=== PATIENT | female | born 1945 | race Caucasian/White ===

== ENCOUNTER 2022-04-22 13:39 | Emergency (ER) | payer MEDICARE, MEDICAID ==
[2022-04-22 14:17] LABS: BASOPHILS % (AUTO) 0.6 %; EOSINOPHILS # (AUTO) 0.1 10^3/uL (0.0-0.7); EOSINOPHILS % (AUTO) 1.3 %; HCT - HEMATOCRIT 37.6 % (37.0-47.0); HGB - HEMOGLOBIN 12.3 g/dL (12.0-16.0); LYMPHOCYTES # (AUTO) 1.3 10^3/uL (1.5-3.5); LYMPHOCYTES % (AUTO) 19.6 %; MEAN CORPUSCULAR HEMOGLOBIN 30.6 pg (27.0-31.0); MEAN CORPUSCULAR HGB CONC 32.7 g/dL (32.0-36.0); MEAN CORPUSCULAR VOLUME 93.5 fL (81.0-99.0); MEAN PLATELET VOLUME 9.4 fL (7.9-10.8); MONOCYTES # (AUTO) 0.7 10^3/uL (0.0-1.0); MONOCYTES % (AUTO) 10.2 %; NEUTROPHILS # (AUTO) 4.6 10^3/uL (1.5-6.6); NEUTROPHILS % (AUTO) 68.2 %; PLT - PLATELET COUNT 292 10^3/uL (130-450); RED BLOOD COUNT 4.02 10^6/uL (4.20-5.40); RED CELL DISTRIBUTION WIDTH 12.5 % (12.0-15.0); WHITE BLOOD COUNT 6.8 x10^3/uL (4.8-10.8)
[2022-04-22 14:24] LABS: BILIRUBIN,URINE NEGATIVE (NEGATIVE); CLARITY,URINE CLEAR (CLEAR); GLUCOSE, URINE (UA) NEGATIVE (NEGATIVE); KETONES,URINE (UA) NEGATIVE (NEGATIVE); LEUKOCYTE ESTERASE, URINE TRACE (NEGATIVE); NITRITE,URINE NEGATIVE (NEGATIVE); OCCULT BLOOD,URINE MODERATE (NEGATIVE); PH,URINE 6.5 PH (5.0-7.5); PROTEIN,URINE NEGATIVE (NEGATIVE); UROBILINOGEN,URINE 0.2 (NORMAL) E.U./dL (NORMAL)
[2022-04-22 14:34] LABS: WBC CLUMPS,URINE PRESENT
[2022-04-22 14:35] LABS: BACTERIA,URINE Few /HPF (None Seen); SQUAMOUS EPITHELIAL CELL,UR NONE SEEN (<= Few)
[2022-04-22 14:44] LABS: ALBUMIN 3.7 g/dL (3.2-5.5); ALBUMIN/GLOBULIN RATIO 1.1 (1.0-2.2); BILIRUBIN,TOTAL 0.3 mg/dL (0.2-1.0); CALCIUM 9.2 mg/dL (8.5-10.3); CREATININE 0.5 mg/dL (0.4-1.0); POTASSIUM 4.1 mmol/L (3.5-5.0)
--- NOTE | 2022-04-22 16:44 | ED Physician Documentation ---
History of Present Illness - Stated complaint Stated Complaint: LOSS OF MEMORY - Chief complaint Chief Complaint: Neuro - Additonal information Additional information: 77-year-old female is brought to the emergency department by her son for evaluation of worsening confusion and altered mentation. Her son recently moved in [place] from [place] 3 to 6 weeks ago. She is living independently but her son reports that he has to be with her every day to ensure she takes medications appropriately. She routinely will forget where she is at as well as recent meals. She is had no focal deficits. Patient has a history of hypertension but no previous history of coronary artery disease or strokes. She was a moderate alcohol user though she has stopped drinking over the last few months. Patient was seen with primary care provider at [facility] and has been referred for neurocognitive testing which is still pending. The son reports that he has a history of cauda so which is a stroke disorder that is received from a parent. He is unsure whether he got it from his mom or dad. Review of Systems Constitutional: denies: Fever, Chills Eyes: reports: Reviewed and negative Nose: reports: Reviewed and negative Throat: reports: Reviewed and negative Cardiac: reports: Reviewed and negative GI: reports: Reviewed and negative : reports: Reviewed and negative Skin: reports: Reviewed and negative Neurologic: reports: Confused. 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 : None HEENT: None Psych: Depression Musculoskeletal: None Derm: None - Past Surgical History Past Surgical History: No - Present Medications Home Medications: Ambulatory Orders Medication Instructions Recorded Confirmed Atorvastatin [Lipitor] 10 mg PO DAILY 04/22/22 04/22/22 Citalopram [CeleXA] 10 mg PO DAILY 04/22/22 04/22/22 Losartan/Hydrochlorothiazide mg PO DAILY 04/22/22 [Losartan-Hctz 100-12.5 mg Tab] - Allergies Allergies/Adverse Reactions: Allergies Allergy/AdvReac Type Severity Reaction Status Date / Time atorvastatin Allergy Unknown Verified 04/22/22 13:53 codeine Allergy Unknown Verified 04/22/22 13:54 fluconazole Allergy Unknown Verified 04/22/22 13:54 Penicillins Allergy Unknown Verified 04/22/22 13:54 sulfamethoxazole Allergy Unknown Verified 04/22/22 13:54 [From Bactrim] trimethoprim [From Bactrim] Allergy Unknown Verified 04/22/22 13:54 - Social History Does the pt smoke?: No Smoking Status: Never smoker Does the pt drink ETOH?: No Does the pt have substance abuse?: No - POLST Patient has POLST: No PD ED PE NORMAL - General General: Alert and oriented X 3, No acute distress, Well developed/nourished - HEENT HEENT: Atraumatic, Moist mucous membranes - Neck Neck: Supple, no meningeal sign, No adenopathy - Cardiac Cardiac: RRR, No murmur - Respiratory Respiratory: No respiratory distress, Clear bilaterally - Abdomen Abdomen: Normal bowel sounds, Soft - Extremities Extremities: No deformity, No tenderness to palpate, Normal ROM s pain - Neuro Neuro: Alert and oriented X 3, story writer 2-12 intact Eye Opening: Spontaneous Motor: Obeys Commands Verbal: Oriented GCS Score: 15 Results - Vitals Vitals: Vital Signs - 24 hr 04/22/22 04/22/22 04/22/22 13:47 15:52 17:00 Temperature 35.9 C L Heart Rate 69 85 69 Respiratory 16 18 18 Rate Blood Pressure 146/81 H 143/83 H 139/92 H O2 Saturation 100 97 98 Oxygen O2 Source Room air - Labs Labs: Laboratory Tests 04/22/22 04/22/22 04/22/22 14:05 14:11 14:11 WBC 6.8 RBC 4.02 L Hgb 12.3 Hct 37.6 MCV 93.5 MCH 30.6 MCHC 32.7 RDW 12.5 Plt Count 292 MPV 9.4 Neut # (Auto) 4.6 Lymph # (Auto) 1.3 L [place] # (Auto) 0.7 Eos # (Auto) 0.1 Baso # (Auto) 0.0 Absolute Nucleated RBC 0.00 Nucleated RBC % 0.0 Sodium 129 L Potassium 4.1 Chloride 91 L Carbon Dioxide 30 Anion Gap 8.0 BUN 20 Creatinine 0.5 Estimated GFR (MDRD) 120 Glucose 114 H Calcium 9.2 Total Bilirubin 0.3 AST 20 ALT 19 Alkaline Phosphatase 48 Total Protein 7.0 Albumin 3.7 Globulin 3.3 Albumin/Globulin Ratio 1.1 Lipase 58 H Urine Color YELLOW Urine Clarity CLEAR Urine pH 6.5 Ur Specific [place] 1.010 Urine Protein NEGATIVE Urine Glucose (UA) NEGATIVE Urine Ketones NEGATIVE Urine Occult Blood MODERATE H Urine Nitrite NEGATIVE Urine Bilirubin NEGATIVE Urine Urobilinogen 0.2 (NORMAL) Ur Leukocyte Esterase TRACE H Urine RBC 11-25 H Urine WBC 6-10 H Urine WBC Clumps PRESENT Ur Squamous Epith Cells NONE SEEN Urine Bacteria Few Ur Microscopic Review INDICATED Urine Culture Comments INDICATED PD MEDICAL DECISION MAKING - ED course Complexity details: reviewed results, re-evaluated patient, considered differential, d/w patient, d/w family ED course: 77-year-old female was brought to emergency department by her son for evaluation of cognitive decline that has gotten worse over the last few weeks since he moved her from [place] to [place]. Specifically over the last 2 to 3 days he has found that his mom has had significant memory changes. She does have a remote history of alcoholism though no alcohol use now for at least a few weeks. No fevers nausea or vomiting. No chest pain. She is had no focal neurodeficits. Here in the emergency department she presents with an NIHSS of 0. She is able to appropriately describe to me a pen described my stethoscope and believes that it is April 2021 but then corrects quickly to April 2022. I did obtain a CBC that showed no worsening anemia or leukocytosis. I also evaluated her electrolytes. There is a mild hyponatremia of 129. No previous for comparison. I was able to review recent UA results in February through [facility] portal on the son's phone. Her urinalysis today is similar to that of February likely indicating chronic pyuria though given lack of fever or dysuria urgency or frequency I doubt acute cystitis will defer antibiotics today. Electrolytes were not available for my evaluation and comparison. I did obtain a CT of her head that showed no acute focal neurogenic findings. I discussed this at the bedside with her son. He is a good advocate for the patient. Patient is scheduled for neurocognitive testing as well as neurology referral upcoming. We discussed that given the UA will defer unless culture is pertinently positive. I did recommend following up with PCP next week to have her sodium rechecked otherwise emergent return precautions were discussed for worsening symptoms. Departure - Departure Disposition: Home, Self Care Clinical Impression: Memory changes, Hyponatremia, Pyuria Condition: Stable Record reviewed to determine appropriate education?: Yes Follow-Up: LEILA SORTO DO [Physician No Access] - Comments: Bia was seen today in the emergency department because she has begun to have a decline in her mentation as well as memory status changes. Here in the emergency department her urinalysis suggest that she has a urinary tract infection however she does not have any symptoms to suggest infection such as urinary frequency, pain or urgency. Therefore her pyuria may be a chronic finding which is found often especially in those were older and female. I would like to defer starting any antibiotics unless her urine culture is grossly suggestive of acute infection. We did obtain a CBC today that showed no worrisome findings. Her electrolytes showed a very mild decrease in her sodium of 129. I do not have a previous for comparison. I recommend some extra salt to her food over the next few days but I would like Dr. Sorto to follow-up her hyponatremia with a repeat electrolyte evaluation early next week. We did do a CT of her head today which did not find any thing to suggest stroke. She does have global cerebral volume loss and chronic microvascular ischemic changes which are common in those who are older but nothing to suggest acute or remote CVA. An MRI would be the gold standard test to evaluate for remote strokes and Dr. Sorto can order this as an outpatient.
--- NOTE | 2022-04-22 17:22 | CT Report ---
PROCEDURE: HEAD WO INDICATIONS: memory changes TECHNIQUE: Noncontrast 4.5 mm thick angled axial sections acquired from the foramen magnum to the vertex. For r adiation dose reduction, the following was used: automated exposure control, adjustment of mA and/or kV according to patient size. COMPARISON: None. FINDINGS: Image quality: Excellent. CSF spaces: Basal cisterns are patent. No extra-axial fluid collections. Ventricles are normal in size and shape. Brain: Moderate chronic microvascular ischemic changes and mild global cerebral volume loss. No midli ne shift. No intracranial masses or hemorrhage. Banerjee-white matter interface is normal. Skull and face: Calvarium and visualized facial bones are intact, without suspicious lesions. Sinuses: Visualized sinuses and mastoids are clear. IMPRESSION: No acute intracranial finding. Mild global cerebral volume loss and moderate chronic microvascular is chemic changes. Reviewed by: Jose F Chance MD on 04/22/2022 4:20 PM [facility] Approved by: Jose F Chance MD on 04/22/2022 4:20 PM [facility] Station ID: [id number]
[2022-04-22 18:14] VITALS: BP 138/83
== END 2022-04-22 18:13 | disposition home or self-care (01) ==
LOC: ED 13:39
DX: R41.3 Other amnesia (principal); E87.1 Hypo-osmolality and hyponatremia; R82.81 Pyuria
CPT/HCPCS: 36415; 80053; 81001; 81003; 83690; 85025; 87086; 99283; 99284

== ENCOUNTER 2022-08-17 16:07 | Outpatient (CLI) | payer MEDICARE, MEDICAID | END 2022-08-17 16:08 | disposition EMS.NT | LOC: EMS 16:07 | DX: F41.9 Anxiety disorder, unspecified (principal) ==

== ENCOUNTER 2022-08-17 19:12 | Outpatient (CLI) | payer MEDICARE, MEDICAID | END 2022-08-17 23:59 | disposition critical access hospital (66) | LOC: EMS 19:12 | DX: R10.9 Unspecified abdominal pain (principal); R11.2 Nausea with vomiting, unspecified; R42 Dizziness and giddiness | CPT/HCPCS: A0425; A0427 ==

== ENCOUNTER 2022-08-17 19:29 | Emergency (ER) | payer MEDICARE, MEDICAID ==
--- OUTSIDE RECORDS SUMMARY | 2022-08-17 19:43 | EXTERNAL MEDICAL SUMMARY RPT | Continuity of Care Document ---
:1945 Author Organization [facility] Address [address] [place] [address] Phone Allergies No information. Encounters No information. Functional Status No information. Immunizations No information. Medications No information. Problems date description facility 2022-06-01 16:17 Other symptoms and signs involving [facility] functions and a 2022-06-01 16:17 Encounter for general adult medical exa [facility] without abno 2022-06-01 16:17 Other reduced mobility [facility] 2022-06-17 11:36 Unspecified osteoarthritis, unspecified site [facility] 2022-06-17 11:36 Pain in right knee [facility] 2022-06-17 11:36 Pain in left knee [facility] 2022-06-17 11:42 Unspecified osteoarthritis, unspecified site [facility] 2022-06-17 11:42 Pain in right knee [facility] 2022-06-17 11:42 Pain in left knee [facility] 2022-06-22 07:44 Unspecified dementia, unspecified sever ity, [facility] without behavior 2022-06-22 09:07 Unspecified dementia, unspecified sever y, [facility] without behavior Procedures No information. Results/Labs test date author facility value unit interpret ation Result panel 1 (unknown) (no (unknown) (unknown) (no value) (units (unk nown) date) unknown) (unknown) (no (unknown) (unknown) 06/17/22 (units (unkno wn) date) unknown) (unknown) (no (unknown) (unknown) [address] [place] [address] (units (unknown) date) unknown) (unknown) (no (unknown) (unknown) : [id number] (units (u nknown) date) unknown) (unknown) (no (unknown) (unknown) Accession Number: (units (unknown) date) [id number] unknown) (unknown) (no (unknown) (unknown) Accession Number: (units (unknown) date) [id number] unknown) (unknown) (no (unknown) (unknown) Age/Sex: 77 / F (units (unknown) date) Date of Service: unknown) (unknown) (no (unknown) (unknown) [place] (units ( unknown) date) [id number] unknown) (unknown) (no (unknown) (unknown) Approved by: (units (u nknown) date) Candido [facility] M.D. unknown) on 06/17/2022 at 13:51 (unknown) (no (unknown) (unknown) Approved by: (units (u nknown) date) Candido [facility] M.D. unknown) on 06/17/2022 at 13:53 (unknown) (no (unknown) (unknown) Bones: No acute (units (unknown) date) fractures or unknown) dislocations. No suspicious bony lesions. (unknown) (no (unknown) (unknown) COMPARISON: [facility] (units (unknown) date) [facility], CR, XR unknown) KNEE LT 3V, 06/17/2022, 11:40. (unknown) (no (unknown) (unknown) COMPARISON: [facility] (units (unknown) date) [facility], CR, XR unknown) KNEE RT 3V, 06/17/2022, 11:40. (unknown) (no (unknown) (unknown) : 1945 (units (unknown) date) Acct:[id number] unknown) (unknown) (no (unknown) (unknown) Dictated by: (units (u nknown) date) Candido [facility] M.D. unknown) on 06/17/2022 at 13:49 (unknown) (no (unknown) (unknown) Dictated by: (units (u nknown) date) Candido [facility] M.D. 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 unknown) (unknown) (no (unknown) (unknown) PROCEDURE: XR KNEE (units (unknown) date) LT 3V unknown) (unknown) (no (unknown) (unknown) PROCEDURE: XR KNEE (units (unknown) date) RT 3V unknown) (unknown) (no (unknown) (unknown) Patient: (units (unkno wn) date) Bia Douglas unknown) MR# (unknown) (no (unknown) (unknown) Procedure: XR knee (units (unknown) date) LT 3V unknown) (unknown) (no (unknown) (unknown) Procedure: XR knee (units (unknown) date) RT 3V unknown) (unknown) (no (unknown) (unknown) Signed (units (unkno wn) date) unknown) (unknown) (no (unknown) (unknown) Soft tissues: No (units (unknown) date) joint effusion. No unknown) suspicious soft tissue calcifications. (unknown) (no (unknown) (unknown) TECHNIQUE: 3 views (units (unknown) date) of the knee were unknown) acquired. (unknown) (no (unknown) (unknown) Tricompartmental (units (unknown) date) degenerative unknown) changes present. Joint space loss at the medial (unknown) (no (unknown) (unknown) Tricompartmental (units (unknown) date) joint space loss, unknown) severe at the medial compartment, moderate (unknown) (no (unknown) (unknown) XRay Report (units (un known) date) unknown) (unknown) (no (unknown) (unknown) also (units (unkno wn) date) unknown) (unknown) (no (unknown) (unknown) at the (units (unkno wn) date) unknown) (unknown) (no (unknown) (unknown) compartment is (units (unknown) date) severe with unknown) articular surface deformity and spurring. Mild (unknown) (no (unknown) (unknown) compartment (units (un known) date) narrowing, moderate unknown) patellofemoral compartment narrowing, spurring (unknown) (no (unknown) (unknown) compartment. (units (u nknown) date) unknown) (unknown) (no (unknown) (unknown) deformity also (units (unknown) date) unknown) (unknown) (no (unknown) (unknown) lateral and (units (un known) date) patellofemoral unknown) compartments. Spurring and articular surface (unknown) (no (unknown) (unknown) lateral (units (unkno wn) date) unknown) (unknown) (no (unknown) (unknown) medial (units (unkno wn) date) unknown) (unknown) (no (unknown) (unknown) present at the (units (unknown) date) medial compartment. unknown) (unknown) (no (unknown) (unknown) present in both (units (unknown) date) compartments. unknown) Result panel 2 (unknown) (no date) (unknown) (unknown) 179 nmol/l (unkn own) (unknown) (no date) (unknown) (unknown) 179 nmol/l [id number] -2 Result panel 3 (unknown) (no date) (unknown) (unknown) 0.38 uiu/ml (unkn own) Result panel 4 (unknown) (no date) (unknown) (unknown) 558 pg/ml (unkn own) Result panel 5 (unknown) (no date) (unknown) (unknown) 0.38 uiu/ml (unkn own) (unknown) (no date) (unknown) (unknown) 1.04 ng/dl (unkn own) Result panel 6 (unknown) (no date) (unknown) (unknown) 179 nmol/l (unkn own) (unknown) (no date) (unknown) (unknown) 179 nmol/l (unkn own) Social History No information. Vital Signs No information.
[2022-08-17 20:20] LABS: BASOPHILS % (AUTO) 0.3 %; EOSINOPHILS % (AUTO) 0.2 %; HCT - HEMATOCRIT 37.4 % (37.0-47.0); LYMPHOCYTES # (AUTO) 0.5 10^3/uL (1.5-3.5); LYMPHOCYTES % (AUTO) 7.5 %; MEAN CORPUSCULAR HEMOGLOBIN 30.7 pg (27.0-31.0); MEAN CORPUSCULAR HGB CONC 34.8 g/dL (32.0-36.0); MEAN CORPUSCULAR VOLUME 88.4 fL (81.0-99.0); MEAN PLATELET VOLUME 9.2 fL (7.9-10.8); MONOCYTES # (AUTO) 0.4 10^3/uL (0.0-1.0); MONOCYTES % (AUTO) 6.4 %; NEUTROPHILS # (AUTO) 5.3 10^3/uL (1.5-6.6); NEUTROPHILS % (AUTO) 85.3 %; PLT - PLATELET COUNT 290 10^3/uL (130-450); RED BLOOD COUNT 4.23 10^6/uL (4.20-5.40); RED CELL DISTRIBUTION WIDTH 12.7 % (12.0-15.0); WHITE BLOOD COUNT 6.2 x10^3/uL (4.8-10.8)
[2022-08-17 20:32] LABS: ALBUMIN 3.8 g/dL (3.2-5.5); ALBUMIN/GLOBULIN RATIO 1.2 (1.0-2.2); BILIRUBIN,TOTAL 0.6 mg/dL (0.2-1.0); CALCIUM 8.7 mg/dL (8.5-10.3); CREATININE 0.6 mg/dL (0.4-1.0); POTASSIUM 2.9 mmol/L (3.5-5.0); TOTAL PROTEIN 6.9 g/dL (6.7-8.2)
--- NOTE | 2022-08-17 21:15 | ED Physician Documentation ---
PD HPI NVD - Stated complaint Stated Complaint: N/V - Chief complaint Chief Complaint: Abd Pain - History obtained from History obtained from: Patient, Family (Patient's son, who is in the ED at patient's bedside. He contributes some of HPI due to patient's dementia.) - Additonal information Additional information: Brought in by ambulance. HPI is from patient as well as her son who is in the ED at bedside. Patient has dementia, although she is able to contribute a significant amount of information to the HPI and her answers seem rapid and appropriate. Patient does not recall the events earlier today that led to the ED visit. Patient's son, who is in [place], says he received a call around noon regarding his mother (patient) having abdominal pain, nausea, and vomiting. He says that when he first saw her tonight, shortly after she arrived emergency department, she was quite diaphoretic. By the time of my exam, she is no longer diaphoretic and is in NAD Patient says she is not currently nauseous and she denies abdominal pain. Review of Systems Constitutional: reports: Other (no report of fever) GI: reports: Abdominal Pain (resolved by the time of this H+P), Nausea (resolved), Vomiting (resolved). 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 : None HEENT: None Psych: Depression Musculoskeletal: None Derm: None - Past Surgical History Past Surgical History: No - Present Medications Home Medications: Ambulatory Orders Medication Instructions Recorded Confirmed Atorvastatin [Lipitor] 10 mg PO DAILY 04/22/22 04/22/22 Citalopram [CeleXA] 10 mg PO DAILY 04/22/22 04/22/22 Losartan/Hydrochlorothiazide mg PO DAILY 04/22/22 [Losartan-Hctz 100-12.5 mg Tab] HYDROcod/ACETAM 5/325 [[place] 5/325] 1 tablet PO Q6H PRN #10 tablet 08/18/22 Ondansetron Odt [Zofran Odt] 4 mg TL Q6H PRN #10 tablet 08/18/22 Tamsulosin [Flomax] 0.4 mg PO DAILY #9 cap 08/18/22 - Allergies Allergies/Adverse Reactions: Allergies Allergy/AdvReac Type Severity Reaction Status Date / Time atorvastatin Allergy Unknown Verified 08/17/22 19:40 codeine Allergy Unknown Verified 08/17/22 19:40 fluconazole Allergy Unknown Verified 08/17/22 19:40 Penicillins Allergy Unknown Verified 08/17/22 19:40 sulfamethoxazole Allergy Unknown Verified 08/17/22 19:40 [From Bactrim] trimethoprim [From Bactrim] Allergy Unknown Verified 08/17/22 19:40 - Social History Does the pt smoke?: No Smoking Status: Never smoker Does the pt drink ETOH?: No Does the pt have substance abuse?: No - POLST Patient has POLST: No PD ED PE NORMAL - Vitals Vital signs reviewed: Yes - General General: Alert and oriented X 3 (AAOx2), No acute distress, Well developed/nourished - HEENT HEENT: Other (tacky mucous membranes) - Cardiac Cardiac: RRR, No murmur - Respiratory Respiratory: No respiratory distress, Clear bilaterally - Abdomen Abdomen: Normal bowel sounds, Soft, Non tender, Non distended - Back Back: No CVA TTP - Derm Derm: Normal color, Warm and dry - Extremities Extremities: No edema Results - Vitals Vitals: Oxygen O2 Source Room air - Labs Labs: Laboratory Tests 08/17/22 08/17/22 08/17/22 20:10 20:13 20:13 WBC 6.2 RBC 4.23 Hgb 13.0 Hct 37.4 MCV 88.4 MCH 30.7 MCHC 34.8 RDW 12.7 Plt Count 290 MPV 9.2 Neut # (Auto) 5.3 Lymph # (Auto) 0.5 L [place] # (Auto) 0.4 Eos # (Auto) 0.0 Baso # (Auto) 0.0 Absolute Nucleated RBC 0.00 Nucleated RBC % 0.0 Sodium 130 L Potassium 2.9 L Chloride 94 L Carbon Dioxide 23 Anion Gap 13.0 BUN 9 Creatinine 0.6 Estimated GFR (MDRD) 97 Glucose 185 H Calcium 8.7 Total Bilirubin 0.6 AST 20 ALT 18 Alkaline Phosphatase 57 Total Protein 6.9 Albumin 3.8 Globulin 3.1 Albumin/Globulin Ratio 1.2 Lipase 45 Urine Color YELLOW Urine Clarity CLEAR Urine pH 8.5 H Ur Specific [place] 1.015 Urine Protein NEGATIVE Urine Glucose (UA) NEGATIVE Urine Ketones 15 H Urine Occult Blood MODERATE H Urine Nitrite NEGATIVE Urine Bilirubin NEGATIVE Urine Urobilinogen 0.2 (NORMAL) Ur Leukocyte Esterase NEGATIVE Urine RBC 6-10 H Urine WBC 0-3 Ur Squamous Epith Cells NONE SEEN Amorphous Sediment Few Urine Bacteria Rare Ur Microscopic Review INDICATED Urine Culture Comments NOT INDICATED - Rads (name of study) CT A/P Relevant Findings:: Prelim report reviewed, See rad report PD Medical Decision Making - ED course Complexity details: reviewed results, re-evaluated patient, considered differential, d/w patient, d/w family ED course: Given description of having nausea, vomiting, and abdominal pain prior to arrival, but on my H&P is comfortable and asymptomatic, and in light of the hematuria, both macro and micro on the urinalysis, a CT of A/P without contrast is performed giving consideration to possible renal colic. Small bowel obstruction is also considered. Radiologist interpretation is "1. Suspected small urinary stones within the proximal and mid left ureter with minimal left hydronephrosis. 2. Small obstructing right renal stone. 3. Colonic diverticulosis without acute diverticulitis." I reviewed these images and there does not appear to be an obstructing right renal stone; I do see evidence of a 2 mm calculus that is intrarenal in the right kidney (nonobstructing). Her CBC is normal. LFTs and lipase are normal. She has mild hyponatremia with a sodium of 130; her sodium was 129 April 2022. Hypokalemia is noted with a potassium level of 2.9. For this, she is given 20 mill equivalents of potassium chloride orally during her ED stay. Urinalysis evidence is hematuria but no findings to suggest infection (negative WBC, negative nitrites) I reviewed these results with patient and patient's son, who is in the ER at bedside. She is again in NAD as she was when I first evaluated her. I explained that the kidney stones are quite small and likely to pass spontaneously. She is given Zofran and Vicodin take-home packs prior to discharge. She is given 0.4 mg of tamsulosin p.o. prior to discharge. During her ED stay she was bolused 1 L of normal saline intravenously. Zofran, Vicodin, and tamsulosin were electronically prescribed to patient's pharmacy of choice. I am prescribing a short course of short-acting opioid pain medication for this patient. 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 I have discussed that the opioids are for short term therapy only, and will not be refilled from the ED. Departure - Departure Disposition: 01 Home, Self Care Clinical Impression: Renal colic on left side Condition: Good Instructions: ED Stone Renal W Colic Prescriptions: Tamsulosin [Flomax] 0.4 mg PO DAILY #9 cap HYDROcod/ACETAM 5/325 [[place] 5/325] 1 tablet PO Q6H PRN #10 tablet PRN Reason: Pain Ondansetron Odt [Zofran Odt] 4 mg TL Q6H PRN #10 tablet PRN Reason: Nausea / Vomiting Comments: Your potassium was low on tonmickey's blood tests; for this, you are given a dose of potassium orally during your emergency department stay. Your primary care provider might want to recheck your potassium level within the next few weeks. This is a finding that is incidental to your symptoms (the low potassium is not causing or being caused by the symptoms). The CT scan of your abdomen and pelvis shows 2 small kidney stones that are lodged in the ureter on the left side. The ureter is the tube that connects the kidney to the bladder and is typically where kidney stones get stuck and cause pain, nausea, and vomiting. These small kidney stones would explain your symptoms. Fortunately, the kidney stones that are stuck are quite small and therefore are likely to pass on their own (not requiring a procedure to have them removed). I have electronically submitted prescriptions for Vicodin (narcotic/opiate pain medication), ondansetron (antinausea medication), and tamsulosin (medication that can help speed up the passage of the kidney stones and make them more likely to pass without a procedure) to the [facility] in [place]. Follow-up with your primary care provider, next available appointment. I am prescribing a short course of narcotic pain medication for you. These are potentially dangerous and addictive medications that should be used carefully. These medications may constipate you. Take an agtz-rxf-tkhhwyo stool softener (docusate) twice daily with plenty of water while taking these medications. If you go 24 hours without a bowel movement, take [id number] miralax, per package instructions. Do not drink or drive while taking these medications. If you received narcotic or sedating medications while in the emergency department, do not drive for 24 hours. Store this medication in a safe, secure place and out of reach of children. It is a violation of federal law to give or sell this medication to another person or to use in a manner other than prescribed. The ED will not refill narcotic prescriptions, including prescriptions lost or stolen. To dispose of unwanted medications: 1. [facility] [address] in [place] has a medication drop box. They accept prescription medications (in pill form) Tuesday through Tuesday 9:00 a.m. to 5:00 p.m. 2. The [facility] accepts prescription medications (in pill form only) for disposal year round. Call for more information. 3. Contact the [facility] for the next [facility] sponsored prescription drug collection event. , [phone], or [phone]; Discharge Date/Time: 08/18/22 00:58
[2022-08-17 21:21] LABS: BILIRUBIN,URINE NEGATIVE (NEGATIVE); GLUCOSE, URINE (UA) NEGATIVE (NEGATIVE); KETONES,URINE (UA) 15 mg/dL (NEGATIVE); LEUKOCYTE ESTERASE, URINE NEGATIVE (NEGATIVE); NITRITE,URINE NEGATIVE (NEGATIVE); OCCULT BLOOD,URINE MODERATE (NEGATIVE); PH,URINE 8.5 PH (5.0-7.5); PROTEIN,URINE NEGATIVE (NEGATIVE); UROBILINOGEN,URINE 0.2 (NORMAL) E.U./dL (NORMAL)
[2022-08-17 21:24] LABS: CLARITY,URINE CLEAR (CLEAR)
[2022-08-17 21:29] LABS: AMORPHOUS SEDIMENT,UR Few /LPF; BACTERIA,URINE Rare /HPF (None Seen); SQUAMOUS EPITHELIAL CELL,UR NONE SEEN (<= Few); WBC,URINE 0-3 /HPF (0-5)
[2022-08-17] MEDS ORDERED: POTASSIUM CHLORIDE 20 MEQ TABLET PO STA (21:51)
[2022-08-17] MEDS ORDERED: SODIUM CHLORIDE 0.9% 1,000 ML IV STA (21:51)
--- NOTE | 2022-08-17 23:48 | CT Report ---
PROCEDURE: ABDOMEN/PELVIS WO INDICATIONS: abd. pain, hematuria TECHNIQUE: Noncontrast 5 mm thick sections acquired from the diaphragms to the symphysis. 5 mm coronal and sagi ttal reformats were then performed. For radiation dose reduction, the following was used: automated exposure control, adjustment of mA and/or kV according to patient size. COMPARISON: None. FINDINGS: Image quality: Excellent. Lung bases:There is a large hiatal hernia with associated atelectasis medially in the lung bases. Heart: Heart is normal in size. ABDOMEN: Liver: No mass lesion. Gallbladder: Within normal limits without calcified gallstones. Biliary ducts: No biliary ductal dilatation. Pancreas: Unremarkable. Spleen: Normal in size. Adrenal Glands: No adrenal nodules. Kidneys and Ureters: There is a 0.2 cm nonobstructing stone within the left kidney. There are 2 susp ected stones within the proximal and mid left ureter measuring up to 0.2 cm with associated minimal l eft hydronephrosis. Stomach and Bowel: Stomach and small bowel loops are normal in caliber and wall thickness. The appen bebe is normal. There is colonic diverticulosis without acute diverticulitis. There is mild segmental wall thickening within the sigmoid colon which may reflect a mild colitis. Peritoneum: No abnormal intraperitoneal fluid. No free air. Ventral Wall: No hernia. Abdominal Nodes: No retroperitoneal or mesenteric adenopathy by size criteria. Vessels: Aorta and inferior vena cava are normal in size. PELVIS: Pelvic Organs:The uterus is surgically absent. Bladder: Unremarkable. Pelvic Nodes: No enlarged lymph nodes. Miscellaneous: No inguinal hernias. Bones: There is an intraosseous lucent lesion with prominent diverticula demonstrated in the L2 verte bral body consistent with an intraosseous hemangioma. IMPRESSION: 1. Suspected small urinary stones within the proximal and mid left ureter with minimal left hydroneph rosis. 2. Small obstructing right renal stone. 3. Colonic diverticulosis without acute diverticulitis. . Reviewed by: Manpreet Robledo MD on 08/17/2022 11:46 PM PDT Approved by: Manpreet Robledo MD on 08/17/2022 11:46 PM PDT Station ID: [id number]
[2022-08-18] MEDS ORDERED: HYDROcod/ACET 5/325 Prepack 4 PO STA (00:28)
[2022-08-18] MEDS ORDERED: TAMSULOSIN 0.4 MG CAPSULE PO STA (00:29)
[2022-08-18] MEDS ORDERED: ONDANSETRON ODT 4 MG Prepack 2 TL PRN (00:29)
[2022-08-18 00:43] VITALS: BP 147/92
== END 2022-08-18 00:58 | disposition home or self-care (01) ==
LOC: EDUNIT# → ED 19:29
DX: N13.2 Hydronephrosis with renal and ureteral calculous obstruction (principal); F03.90 Unspecified dementia, unspecified severity, without behavioral disturbance, psychotic disturbance, mood disturbance, and anxiety; I10 Essential (primary) hypertension
CPT/HCPCS: 36415; 74176; 80053; 81001; 83690; 85025; 99284; A9270; 81003; 87086

== ENCOUNTER 2022-12-22 18:39 | Outpatient (CLI) | payer MEDICARE, MEDICAID | END 2022-12-22 23:59 | disposition critical access hospital (66) | LOC: EMS 18:39 | DX: R55 Syncope and collapse (principal); R42 Dizziness and giddiness; R11.2 Nausea with vomiting, unspecified | CPT/HCPCS: A0425; A0427 ==

== ENCOUNTER 2022-12-22 18:58 | Emergency (ER) | payer MEDICARE, MEDICAID ==
[2022-12-22 19:15] VITALS: O2SAT 100
[2022-12-22 19:31] LABS: BASOPHILS % (AUTO) 0.2 %; HCT - HEMATOCRIT 38.4 % (37.0-47.0); HGB - HEMOGLOBIN 12.8 g/dL (12.0-16.0); LYMPHOCYTES # (AUTO) 0.5 10^3/uL (1.5-3.5); LYMPHOCYTES % (AUTO) 7.3 %; MEAN CORPUSCULAR HEMOGLOBIN 28.8 pg (27.0-31.0); MEAN CORPUSCULAR HGB CONC 33.3 g/dL (32.0-36.0); MEAN CORPUSCULAR VOLUME 86.3 fL (81.0-99.0); MEAN PLATELET VOLUME 10.1 fL (7.9-10.8); MONOCYTES # (AUTO) 0.2 10^3/uL (0.0-1.0); MONOCYTES % (AUTO) 3.5 %; NEUTROPHILS # (AUTO) 5.8 10^3/uL (1.5-6.6); NEUTROPHILS % (AUTO) 88.7 %; PLT - PLATELET COUNT 348 10^3/uL (130-450); RED BLOOD COUNT 4.45 10^6/uL (4.20-5.40); RED CELL DISTRIBUTION WIDTH 11.8 % (12.0-15.0); WHITE BLOOD COUNT 6.6 x10^3/uL (4.8-10.8)
[2022-12-22] MEDS: SODIUM CHLORIDE 0.9% 1,000 ML IV STA (19:35)
[2022-12-22] MEDS: DROPERIDOL 5 MG/2 ML VIAL IVP STA (19:36)
[2022-12-22 19:49] LABS: ALBUMIN 4.1 g/dL (3.2-5.5); ALBUMIN/GLOBULIN RATIO 1.4 (1.0-2.2); BILIRUBIN,TOTAL 0.5 mg/dL (0.2-1.0); CALCIUM 9.3 mg/dL (8.5-10.3); CREATININE 0.5 mg/dL (0.6-1.3); POTASSIUM 3.3 mmol/L (3.5-4.5)
--- NOTE | 2022-12-22 20:19 | ED Physician Documentation ---
History of Present Illness - Stated complaint Stated Complaint: NEAR SYNCOPE, VOMITED - Chief complaint Chief Complaint: Neuro - History obtained from History obtained from: Patient, EMS - History of Present Illness Timing: Today Pain level max: 2 Pain level now: 1 - Additonal information Additional information: 77-year-old female states that she was at home tonight when she drank some punch and then had vomiting. She has mild abdominal cramping. No fevers. No chills. Given Zofran by EMS and is currently feeling better. No diarrhea or constipation. No falls. No head injury. No recent antibiotics. No recent travel. Review of Systems Constitutional: denies: Fever, Chills Throat: denies: Sore throat GI: reports: Nausea, Vomiting. 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 : None HEENT: None Psych: Depression Musculoskeletal: None Derm: None - Past Surgical History Past Surgical History: No - Present Medications Home Medications: Ambulatory Orders Medication Instructions Recorded Confirmed Atorvastatin [Lipitor] 10 mg PO DAILY 04/22/22 04/22/22 Citalopram [CeleXA] 10 mg PO DAILY 04/22/22 04/22/22 Losartan/Hydrochlorothiazide mg PO DAILY 04/22/22 [Losartan-Hctz 100-12.5 mg Tab] HYDROcod/ACETAM 5/325 [[place] 5/325] 1 tablet PO Q6H PRN #10 tablet 08/18/22 Ondansetron Odt [Zofran Odt] 4 mg TL Q6H PRN #10 tablet 08/18/22 Tamsulosin [Flomax] 0.4 mg PO DAILY #9 cap 08/18/22 Cefpodoxime Proxetil [Vantin] 100 mg PO Q12H #14 tablet 12/22/22 Ondansetron Odt [Zofran] 4 mg TL Q6H PRN #10 tablet 12/22/22 - Allergies Allergies/Adverse Reactions: Allergies Allergy/AdvReac Type Severity Reaction Status Date / Time atorvastatin Allergy Unknown Verified 12/22/22 19:15 codeine Allergy Unknown Verified 12/22/22 19:15 fluconazole Allergy Unknown Verified 12/22/22 19:15 Penicillins Allergy Unknown Verified 12/22/22 19:15 sulfamethoxazole Allergy Unknown Verified 12/22/22 19:15 [From Bactrim] trimethoprim [From Bactrim] Allergy Unknown Verified 12/22/22 19:15 - Social History Does the pt smoke?: No Smoking Status: Never smoker Does the pt drink ETOH?: No Does the pt have substance abuse?: No - POLST Patient has POLST: No PD ED PE NORMAL - Vitals Vital signs reviewed: Yes - General General: Alert and oriented X 3 - HEENT HEENT: Atraumatic, PERRL, Ears normal, Moist mucous membranes, Pharynx benign - Neck Neck: Supple, no meningeal sign, No bony TTP - Cardiac Cardiac: RRR, Strong equal pulses - Respiratory Respiratory: No respiratory distress, Clear bilaterally - Abdomen Abdomen: Soft, Non tender, Non distended - Back Back: No CVA TTP - Derm Derm: Warm and dry - Neuro Neuro: Alert and oriented X 3 Results - Vitals Vitals: Vital Signs - 24 hr 12/22/22 12/22/22 19:08 19:30 Temperature 36.4 C L Heart Rate 87 80 Respiratory 19 22 Rate Blood Pressure 136/65 H 158/71 H O2 Saturation 100 100 Oxygen O2 Source Room air - EKG (time done) 1909 EKG releavant findings:: EKG personally interpreted by author of this note. Relevant findings are: Rate: Rate (enter#) (82) Rhythm: NSR Intervals: LBBB - Labs Labs: Laboratory Tests 12/22/22 12/22/22 12/22/22 19:27 19:27 19:27 WBC 6.6 RBC 4.45 Hgb 12.8 Hct 38.4 MCV 86.3 MCH 28.8 MCHC 33.3 RDW 11.8 L Plt Count 348 MPV 10.1 Neut # (Auto) 5.8 Lymph # (Auto) 0.5 L [place] # (Auto) 0.2 Eos # (Auto) 0.0 Baso # (Auto) 0.0 Absolute Nucleated RBC 0.00 Nucleated RBC % 0.0 Sodium 129 L Potassium 3.3 L Chloride 96 L Carbon Dioxide 22 Anion Gap 11.0 BUN 14 Creatinine 0.5 L Estimated GFR (MDRD) 120 Glucose 171 H Calcium 9.3 Total Bilirubin 0.5 AST 16 ALT 16 Alkaline Phosphatase 59 Troponin I High Sens 5.8 Total Protein 7.0 Albumin 4.1 Globulin 2.9 Albumin/Globulin Ratio 1.4 Lipase 37 Urine Color Urine Clarity Urine pH Ur Specific [place] Urine Protein Urine Glucose (UA) Urine Ketones Urine Occult Blood Urine Nitrite Urine Bilirubin Urine Urobilinogen Ur Leukocyte Esterase Urine RBC Urine WBC Ur Squamous Epith Cells Urine Bacteria Ur Microscopic Review Urine Culture Comments 12/22/22 20:20 WBC RBC Hgb Hct MCV MCH MCHC RDW Plt Count MPV Neut # (Auto) Lymph # (Auto) [place] # (Auto) Eos # (Auto) Baso # (Auto) Absolute Nucleated RBC Nucleated RBC % Sodium Potassium Chloride Carbon Dioxide Anion Gap BUN Creatinine Estimated GFR (MDRD) Glucose Calcium Total Bilirubin AST ALT Alkaline Phosphatase Troponin I High Sens Total Protein Albumin Globulin Albumin/Globulin Ratio Lipase Urine Color YELLOW Urine Clarity HAZY Urine pH 8.0 H Ur Specific [place] 1.015 Urine Protein NEGATIVE Urine Glucose (UA) NEGATIVE Urine Ketones 15 H Urine Occult Blood MODERATE H Urine Nitrite POSITIVE H Urine Bilirubin NEGATIVE Urine Urobilinogen 0.2 (NORMAL) Ur Leukocyte Esterase NEGATIVE Urine RBC 6-10 H Urine WBC 0-3 Ur Squamous Epith Cells NONE SEEN Urine Bacteria Many H Ur Microscopic Review INDICATED Urine Culture Comments INDICATED PD Medical Decision Making - ED course Complexity details: reviewed results, re-evaluated patient, considered differential, d/w patient, d/w family ED course: 77-year-old female with vomiting after drinking punch. She was given Zofran, IV fluids and droperidol. Vomiting resolved.She is found to have a UTI and was given Rocephin. Her family is concerned that she could have another k idney stone as she reportedly had a kidney stone 3 months ago. Patient does not have any back or flank pain currently. Otherwise asymptomatic. No headache, no dizziness. Ambulating well. CT scan does not show any evidence of obstructing or passing kidney stones. No evidence of pyelonephritis. No evidence of sepsis. Tolerating p.o. without difficulty here. Will have her follow-up with her PCP for further care. Patient counseled regarding signs and symptoms for which I believe and urgent re-evaluation would be necessary. Patient with good understanding of and agreement to plan and is comfortable going home at this time This document was made in part using voice recognition software. While efforts are made to proofread this document, sound alike and grammatical errors may occur. Departure - Departure Disposition: 01 Home, Self Care Clinical Impression: Vomiting Qualifiers: Vomiting type: unspecified Nausea presence: with nausea Qualified Code(s): R11.2 - Nausea with vomiting, unspecified Urinary tract infection Qualifiers: Urinary tract infection type: acute cystitis Hematuria presence: without hematuria Qualified Code(s): N30.00 - Acute cystitis without hematuria Condition: Good Instructions: ED UTI Cystitis Female, ED Nausea Vomiting Follow-Up: LEILA SORTO DO [Primary Care Provider] - Within 1 week Prescriptions: Cefpodoxime Proxetil [Vantin] 100 mg PO Q12H #14 tablet Ondansetron Odt [Zofran] 4 mg TL Q6H PRN #10 tablet PRN Reason: Nausea / Vomiting Comments: You appear to have a urinary tract infection and was given Rocephin here. Will prescribe antibiotics for home as well. Please follow-up with your doctor for further care. Please return if you worsen. Your [facility] were sent to [facility] in [place]. Her CT scan does not show any evidence of obstructing kidney stones or passing kidney stones. Forms: PCP List
[2022-12-22 20:33] LABS: BILIRUBIN,URINE NEGATIVE (NEGATIVE); GLUCOSE, URINE (UA) NEGATIVE (NEGATIVE); KETONES,URINE (UA) 15 mg/dL (NEGATIVE); LEUKOCYTE ESTERASE, URINE NEGATIVE (NEGATIVE); NITRITE,URINE POSITIVE (NEGATIVE); OCCULT BLOOD,URINE MODERATE (NEGATIVE); PROTEIN,URINE NEGATIVE (NEGATIVE); UROBILINOGEN,URINE 0.2 (NORMAL) E.U./dL (NORMAL)
[2022-12-22 20:36] LABS: CLARITY,URINE HAZY (CLEAR)
[2022-12-22 20:44] LABS: BACTERIA,URINE Many /HPF (None Seen); SQUAMOUS EPITHELIAL CELL,UR NONE SEEN (<= Few); WBC,URINE 0-3 /HPF (0-5)
[2022-12-22] MEDS: cefTRIAXone 1 GM VIAL IVP STA (21:04)
--- NOTE | 2022-12-22 22:15 | CT Report ---
PROCEDURE: ABDOMEN/PELVIS WO INDICATIONS: vomiting, UTI TECHNIQUE: A CT scan of the abdomen and pelvis was performed without the use of intravenous contrast. Images we re recorded and evaluated at appropriate window settings. Reformats: coronal and sagittal. For radiat ion dose reduction, the following was used: automated exposure control, adjustment of mA and/or kV ac cording to patient size. COMPARISON: CT abdomen pelvis 08/17/2022. FINDINGS: Image quality: There is mild motion artifact. Lung bases:There is atelectasis medially within the lung bases. Heart: Heart is normal in size. There is a large hiatal hernia containing the stomach and a segment of the transverse colon. ABDOMEN: Liver:Noncontrast evaluation of the liver demonstrates no discrete mass. Gallbladder: Within normal limits without calcified gallstones. Biliary ducts: No biliary ductal dilatation. Pancreas: Unremarkable. Spleen: Normal in size. Adrenal Glands: No adrenal nodules. Kidneys and Ureters: No hydronephrosis. There is a punctate nonobstructing right renal stone. No per inephric stranding or fluid. Stomach and Bowel: Stomach, small bowel loops, and colon are normal in caliber and wall thickness. T he appendix is normal. There is colonic diverticulosis without acute diverticulitis. Peritoneum: No abnormal intraperitoneal fluid. No free air. Abdominal Wall: No hernia. There is a fat density mass within the left lateral abdominal wall sugge stive of a lipoma measuring up to 10.1 x 3.2 cm in transverse dimension. Abdominal Nodes: No retroperitoneal or mesenteric adenopathy by size criteria. Vessels: Aorta and inferior vena cava are normal in size. PELVIS: Pelvic Organs: Unremarkable. Bladder: Unremarkable. Pelvic Nodes: No enlarged lymph nodes. Miscellaneous: No inguinal hernias. Bones: Visualized osseous structures demonstrate no suspicious lesions. IMPRESSION: 1. No definite acute intra-abdominal abnormality. Specifically, no hydronephrosis. 2. No evidence of appendicitis. 3. Colonic diverticulosis without acute diverticulitis. Reviewed by: Manpreet Robledo MD on 12/22/2022 10:13 PM PDT Approved by: Manpreet Robledo MD on 12/22/2022 10:13 PM PDT Station ID: [id number]
[2022-12-22 22:39] VITALS: BP 164/83
--- NOTE | 2022-12-24 11:28 | ED Physician Documentation ---
ED Addendum - Addendum Addendum: 12/24/22 11:28 CX reviewed, chetna licea
== END 2022-12-22 22:36 | disposition home or self-care (01) ==
LOC: EDUNIT# → ED 18:58
DX: N30.00 Acute cystitis without hematuria (principal); B96.1 Klebsiella pneumoniae [K. pneumoniae] as the cause of diseases classified elsewhere; R11.2 Nausea with vomiting, unspecified; I10 Essential (primary) hypertension; E78.00 Pure hypercholesterolemia, unspecified; F03.90 Unspecified dementia, unspecified severity, without behavioral disturbance, psychotic disturbance, mood disturbance, and anxiety; Z79.899 Other long term (current) drug therapy
CPT/HCPCS: 36415; 51701; 80053; 81001; 81003; 83690; 84484; 85025; 87077; 87086; 87181; 93005; 99284

== ENCOUNTER 2023-09-01 07:48 | Emergency (ER) | payer MEDICARE, MEDICAID ==
--- NOTE | 2023-09-01 08:22 | ED Physician Documentation ---
History of Present Illness - Stated complaint Stated Complaint: GLF - Chief complaint Chief Complaint: Trauma Hd/Nk - History obtained from History obtained from: Patient, Family - Additonal information Additional information: The patient is brought to the emergency department by her son for chief complaint of ground-level fall and facial injury. The son states that the patient has some dementia and is an inconsistent historian but when it first happened this morning, the patient told him that she was walking and tripped on the leg of her bed and fell face first to the ground, striking her nose on the edge of the cat dish. Patient does not remember catching herself with her arms and thinks she fell full force to the floor on her face. She did not lose consciousness to her recollection and states that nothing is hurting her except the nose. Her other son was home and was able to help her up and the patient was ambulatory after the fall. No chest pain or abdominal pain. No spinal pain . No epistaxis. No visual changes. No extremity pain. No other complaints at this time. The patient is not anticoagulated. PD PAST MEDICAL HISTORY - Past Medical History Past Medical History: Yes Cardiovascular: Hypertension, High cholesterol Respiratory: None Neuro: None, Dementia Endocrine/Autoimmune: None GI: None [employer]: None : None HEENT: None Psych: Depression Musculoskeletal: None Derm: None - Past Surgical History Past Surgical History: No - Present Medications Home Medications: Ambulatory Orders Medication Instructions Recorded Confirmed Atorvastatin [Lipitor] 10 mg PO DAILY 04/22/22 09/01/23 Citalopram [CeleXA] 10 mg PO DAILY 04/22/22 09/01/23 Losartan/Hydrochlorothiazide 100 mg PO DAILY 04/22/22 09/01/23 [Losartan-Hctz 100-12.5 mg Tab] Donepezil [Aricept] 10 mg PO DAILY 09/01/23 09/01/23 - Allergies Allergies/Adverse Reactions: Allergies Allergy/AdvReac Type Severity Reaction Status Date / Time atorvastatin Allergy Unknown Verified 09/01/23 07:57 codeine Allergy Unknown Verified 09/01/23 07:57 fluconazole Allergy Unknown Verified 09/01/23 07:57 Penicillins Allergy Unknown Verified 09/01/23 07:57 sulfamethoxazole Allergy Unknown Verified 09/01/23 07:57 [From Bactrim] trimethoprim [From Bactrim] Allergy Unknown Verified 09/01/23 07:57 - Social History Does the pt smoke?: No Smoking Status: Never smoker Does the pt drink ETOH?: No Does the pt have substance abuse?: No - POLST Patient has POLST: No PD ED PE NORMAL - Vitals Vital signs reviewed: Yes - General General: Alert and oriented X 3, No acute distress, Well developed/nourished - HEENT HEENT: PERRL, EOMI, Moist mucous membranes, Other (Contusion and abrasion over nasal bridge with tenderness to palpation. No obvious deformity. No other facial traumatic findings on examination. No tenderness palpation elsewhere. No tenderness or deformity over the scalp.) - Neck Neck: Supple, no meningeal sign, No bony TTP - Cardiac Cardiac: RRR, No murmur - Respiratory Respiratory: No respiratory distress, Clear bilaterally - Abdomen Abdomen: Soft, Non tender, Non distended - Back Back: No spinal TTP - Derm Derm: Normal color, Warm and dry, No rash - Extremities Extremities: No deformity, No edema - Neuro Neuro: Other - Psych Psych: Normal mood, Normal affect Results - Vitals Vitals: Oxygen O2 Source Room air - Rads (name of study) CT head Relevant Findings:: Final report received, See rad report (nad) CT face Relevant Findings:: Final report received, See rad report (nad) CT c-spine Relevant Findings:: Final report received, See rad report (nad) PD Medical Decision Making - ED course Complexity details: reviewed results, re-evaluated patient, considered differential, d/w patient, d/w family ED course: Alert, conversant, appropriate. No gross deficits. The patient overall is well-appearing, but did have contusion and abrasion over her nasal bridge. Given that she was a poor historian due to her dementia, and due to the fact that she was reporting an unbroken fall directly onto her face/head, I felt she should have CTs of the head and face. Given that she is also elderly and at high risk for occult C-spine injury, I felt CT scan of the cervical spine should also be performed. These were all negative. The pt's c-spine was cleared and Bacitracin applied to wounds. Pt was stable for d/c home. We have discussed symptomatic management at home, as well as the usual indications for return. Departure - Departure Disposition: Home, Self Care Clinical Impression: Fall Qualifiers: Encounter type: initial encounter Qualified Code(s): W19.XXXA - Unspecified fall, initial encounter Facial contusion Qualifiers: Encounter type: initial encounter Qualified Code(s): S00.83XA - Contusion of other part of head, initial encounter Condition: Stable Instructions: ED Contusion Face Comments: All of your CT scans look good. You have bruised and scraped your nose, and this will heal on its own. You may apply Neosporin ointment to the abrasion until it scabs over, if you wish. Please follow-up with your doctor for any further concerns. Forms: PCP List Discharge Date/Time: 09/01/23 09:33
--- NOTE | 2023-09-01 09:01 | CT Report ---
PROCEDURE: Head WO INDICATIONS: fall/head injury TECHNIQUE: Noncontrast 4.5 mm thick angled axial sections acquired from the foramen magnum to the vertex. For r adiation dose reduction, the following was used: automated exposure control, adjustment of mA and/or kV according to patient size. COMPARISON: CT head 04/22/2022 FINDINGS: Image quality: Excellent. The ventricular system and cortical sulci demonstrate atrophy, consistent for patient's stated age. There are areas of hypodensity in the periventricular and subcortical white matter. There is no acut e intra or extra-axial fluid collection. No acute hemorrhage, mass lesion or midline shift. Brainst em is unremarkable. Globes are symmetrical. Sinuses are aerated. Osseous structures are intact. IMPRESSION: 1. No acute intracranial process. 2. Mild to moderate atrophy and chronic microvascular ischemic changes. Reviewed by: Pat Khan MD on 09/01/2023 8:59 AM PDT Approved by: Pat Khan MD on 09/01/2023 8:59 AM PDT Station ID: [id number]
--- NOTE | 2023-09-01 09:01 | CT Report ---
PROCEDURE: Maxillofacial WO INDICATIONS: fall/facial injury TECHNIQUE: Noncontrast 1.5 mm thick axial images acquired from the mandible through the frontal sinuses, with co rica and sagittal reformatting. For radiation dose reduction, the following was used: automated ex posure control, adjustment of mA and/or kV according to patient size. COMPARISON: CT head, C-spine 09/01/2023, CT head 04/22/2022 FINDINGS: Image quality: Excellent. Bones and teeth: Orbital ricks are intact. Sinus ricks show no fracture or deformity. Nasal bones and septum are intact. Visualized portions of the mandible demonstrate no fractures or subluxation. Zygomatic arches are intact. Pterygoid plates are intact. Visualized portions of the skull base an d auditory canals are intact. Sinuses: Paranasal sinuses are aerated, without fluid levels, mucosal thickening, or mucoceles. Mas toid air cells are aerated. Soft tissues: No edema, masses, or fluid collections. No enlarged lymph nodes. No soft tissue lace rations or debris. Vascular: Visualized vascular structures appear normal in the absence of contrast. Bony vascular fo ramina and canals are intact. IMPRESSION: No visualized fracture. Reviewed by: Pat Khan MD on 09/01/2023 9:00 AM PDT Approved by: Pat Khan MD on 09/01/2023 9:00 AM PDT Station ID: [id number]
--- NOTE | 2023-09-01 09:03 | CT Report ---
PROCEDURE: Cervical Spine WO INDICATIONS: fall/head injury/dementia TECHNIQUE: Noncontrast 3 mm thick sections acquired from the skull base to the T4 level. Sagittal and coronal r eformats were then constructed. For radiation dose reduction, the following was used: automated exp osure control, adjustment of mA and/or kV according to patient size. COMPARISON: CT maxillofacial, head 08/31/2021 FINDINGS: Image quality: Excellent. Bones: No fractures or dislocations. Visualized superior ribs are intact. Multilevel degenerative changes with prominent disc space narrowing at C5-6 and C6-7. Anterior osteophytes are present. Arthritic changes are present at C1-2. Soft tissues: Prevertebral soft tissues are normal in thickness. No paravertebral hematomas. No ap ical pneumothoraces. Thyroid gland is heterogeneous with multiple foci of low-attenuation calcificat ions. No priors. IMPRESSION: Degenerative changes of visualized fracture. Heterogeneous appearance of the thyroid gland with areas of calcification and low attenuation. Thyroi d ultrasound may be obtained on a nonemergent basis for further evaluation as clinically indicated. Reviewed by: Pat Khan MD on 09/01/2023 9:02 AM PDT Approved by: Pat Khan MD on 09/01/2023 9:02 AM PDT Station ID: [id number]
[2023-09-01 09:41] VITALS: BP 141/82; O2SAT 97
== END 2023-09-01 09:33 | disposition home or self-care (01) ==
LOC: ED 07:48
DX: S00.33XA Contusion of nose, initial encounter (principal); W18.39XA Other fall on same level, initial encounter; F03.90 Unspecified dementia, unspecified severity, without behavioral disturbance, psychotic disturbance, mood disturbance, and anxiety; I10 Essential (primary) hypertension; E78.00 Pure hypercholesterolemia, unspecified
CPT/HCPCS: 99283; 99284